=== PATIENT | female | born 1965 | race Caucasian/White ===

== ENCOUNTER → 2017-07-11 | Outpatient (CLI) | payer BC, OTHER ==
[~2017-07-11] MED LIST: CYMBALTA; FLEXERIL PO; LAMICTAL XR200 MG PO; PERCOCET 5-3251 EACH PO
== END ==
LOC: RAD 14:29
DX: J18.9 Pneumonia, unspecified organism (principal); Z87.01 Personal history of pneumonia (recurrent)

== ENCOUNTER → 2018-03-11 | Outpatient (CLI) | payer BC, OTHER | LOC: RAD 12:30 | DX: R93.89 Abnormal findings on diagnostic imaging of other specified body structures (principal) ==

== ENCOUNTER → 2019-11-01 | Outpatient (CLI) | payer BC, OTHER | LOC: LAB 09:56 | PROVIDERS: ATTEND Family Medicine | DX: Z20.828 Contact with and (suspected) exposure to other viral communicable diseases (principal) ==

== ENCOUNTER → 2020-01-18 | Outpatient (CLI) | payer BC, OTHER | LOC: LAB 11:18 | PROVIDERS: ATTEND Family Medicine | DX: R53.83 Other fatigue (principal); R09.89 Other specified symptoms and signs involving the circulatory and respiratory systems; Z20.828 Contact with and (suspected) exposure to other viral communicable diseases ==